=== PATIENT | male | born 1995 | race Caucasian/White ===

== ENCOUNTER 2019-12-31 14:03 | Outpatient (CLI) | payer OTHER, SELFPAY ==
--- NOTE | ~2019-12-31 | CT_ITS ---
EXAMINATION: CT abdomen pelvis w con EXAM DATE: 12/31/2019 14:59 INDICATION: Hematochezia. TECHNIQUE: Spiral CT of the abdomen and pelvis was performed following intravenous injection of 100 m L Omnipaque 350. Axial, coronal and sagittal images were reviewed. The dose-length product (DLP) fo r this examination was 704.48 mGy-cm. The exposure was tailored according to patient size (auto mA e xposure control), and iterative reconstruction (ASIR) was used as additional dose reduction technique . There is no prior study for comparison. FINDINGS: There is approximately 10 cm segment of transverse colonic wall with moderate wall thickeni ng, adjacent inflammation. There are mildly enlarged lymph nodes in the mesentery supplying this. Dif ferential diagnosis includes focal colitis, lymphoma, colon cancer. At a minimum, follow-up CT scan i ndicated. The liver, spleen, adrenal glands and pancreas are unremarkable. Gallbladder is unremarkable. No bi liary obstruction. Portal and splenic veins are patent. Kidneys enhance symmetrically. There is no hydronephrosis. The prostate is unremarkable. The bladder is unremarkable. There is no retroperi toneal or pelvic lymphadenopathy. The appendix is not positively visualized. There is no pericecal inflammatory change to suggest appe ndicitis. The stomach and small bowel are unremarkable. No free intraperitoneal gas. Mild cardi omegaly, prominent for patient's age. Left ventricular appears dilated in particular. The lung bases are unremarkable. There are no osteoblastic or osteolytic lesions identified. IMPRESSION: 1. Transverse colonic wall thickening and inflammation with associated lymphadenopathy, could be col itis or malignancy. 2. Mild cardiomegaly, left ventricular dilation. Reviewed, dictated and finalized at location A. IAN TUTOR IMPRESSION: 1. Transverse colonic wall thickening and inflammation with associated lymphad enopathy, could be colitis or malignancy. 2. Mild cardiomegaly, left ventricular dilation.
== END 2019-12-31 14:04 | disposition home or self-care (01) ==
PROVIDERS: PCP Emergency Medicine; Visit Provider Emergency Medicine
DX: R10.9 Unspecified abdominal pain (principal); K92.1 Melena; I51.7 Cardiomegaly
CPT/HCPCS: 74177; Q9967

== ENCOUNTER 2020-07-03 21:21 | Emergency (ER) | payer OTHER, SELFPAY ==
[2020-07-03] VITALS (10 sets, daily range): BP systolic 85–100; BP diastolic 50–69; PULSE 113–160; RESP 22–28; TEMP 37.2; O2SAT 100
--- NOTE | ~2020-07-03 | XR_ITS ---
EXAMINATION: XR chest 1V portable EXAM DATE: 07/03/2020 22:04 INDICATION: SVT. Recent cardiac surgery. TECHNIQUE: Portable AP frontal chest x-ray was obtained. There is no prior study for comparison. FINDINGS: Probable small to moderate left pleural effusion versus chronic left hemidiaphragm elevatio n and atelectasis. There is retrocardiac airspace disease most likely atelectasis given the volume lo ss, but nonspecific. There is cardiomegaly. There are 2 sternotomy wires. No pneumothorax. There are no osseous abnormalities identified. IMPRESSION: 1. Cardiomegaly. 2. Elevated left hemidiaphragm versus small to moderate pleural effusion. 3. Left lower lobe opacity more likely atelectasis than pneumonia. Reviewed, dictated and finalized at location A.
--- NOTE | 2020-07-03 21:38 | PC.NURSE ---
DR PETERSON AT BEDSIDE. PT ON RHEOSTAT ASSEMBLER ADENOSINE 6 MG GIVEN IVP PER DR PETERSON VRBO. PT TOLERATED WELL
--- NOTE | 2020-07-03 21:40 | ECG_ITS ---
Measurements Intervals [place] Rate: 161 P: OR: 0 QRS: 51 QRSD: 89 T: 240 QT: 278 QTc: 455 Interpretive Statements SUPRAVENTRICULAR TACHYCARDIA ST-T WAVE ABNORMALITY IN LATERAL LEADS- CONSIDER ISCHEMIA OR RATE RELATED BASELINE WANDER- I, II, III, AVL, AVF ABNORMAL ECG Electronically Signed On 07-04-2020 8:05:28 CDT by [place] Olivas D.O.
--- NOTE | 2020-07-03 21:40 | ECG_ITS ---
Measurements Intervals [place] Rate: 121 P: 59 DE: 154 QRS: 29 QRSD: 88 T: 108 QT: 316 QTc: 449 Interpretive Statements SINUS TACHYCARDIA FREQUENT ATRIAL PREMATURE COMPLEXES NONSPECIFIC T-WAVE ABNORMALITY- DIFFUSE LEADS ABNORMAL ECG Electronically Signed On 07-04-2020 8:06:22 CDT by Mt Olivas D.O.
--- NOTE | 2020-07-03 21:45 | ED.ARRPALP ---
HPI - Arrhythmia/Palpitations General Chief Complaint: Chest Pain Stated Complaint: Think im in afibb Time Seen by Provider: 07/03/20 21:32 History of Present Illness HPI narrative: Patient presents with with his girlfriend for fast heart rate. 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 He also had surgery on an aneurysm. He has had a lot of diaphoresis during this recovery.. He has chest pain which is postoperative. He does not have more chest pain with the fast heart rate. He has never had SVT before. The fast heart rate started about 2 hours prior to presentation. He does not have shortness of breath. He has some increased discomfort with deep breath. He was told he has fluid on his lungs. Related Data Allergies Allergy/AdvReac Type Severity Reaction Status Date / Time No Known Allergies Allergy Verified 07/03/20 21:37 Review of Systems Review of Systems: Narrative: CONSTITUTIONAL: Denies fever, chills, or sweats. EYES: Denies visual changes, redness, or discharge. ENT: Denies rhinorrhea, congestion, sore throat, or otalgia. CARDIOVASCULAR: He has discomfort of the chest but not pain, he has palpitations. RESPIRATORY: Denies cough or dyspnea. Has some discomfort when he takes deep breaths. GASTROINTESTINAL: Denies abdominal pain, nausea, vomiting, or diarrhea. GENITOURINARY: Denies dysuria or hematuria. SKIN: Denies rash or itching. MUSCULOSKELETAL: Denies back pain, joint pain, or myalgia. NEUROLOGIC: Denies headache, numbness, or weakness. . All systems reviewed & are unremarkable except as noted in HPI and below PMFSH Past Medical History Medical History (Updated 07/04/20 @ 00:00 by Edinson Daemon) Aortic valve commissural abnormality Surgical History Surgical History (Updated 07/03/20 @ 22:43 by Alva Kramer MD) History of aortic valve repair Exam Narrative: Exam Narrative: GENERAL: Well-appearing, well-nourished Pale looking and diaphoretic. HEAD: Normocephalic, atraumatic. EYES: PERRLA and EOMI. ENT: Nares clear, no rhinorrhea or epistaxis. Mucous membranes moist. NECK: Supple. CHEST: Clear to auscultation. No respiratory distress. Healing scar on the mid chest HEART: Regular rate and rhythm. No murmur heard. Normal peripheral pulses. ABDOMEN: Soft, nontender, nondistended, normal active bowel sounds. Healing 1 cm incision sites on the abdomen EXTREMITIES: Normal range of motion. No edema. SKIN: Warm, dry, no rash. NEURO: No focal deficits. Alert and oriented x3. PSYCH: Normal mood and affect. Const: General: no acute distress and alert Course Reevaluation(s) Reevaluation #1: Rechecked the patient and the SVT is back. Pressure was maintaining at 95. Gave him Adenosine 12 mg IV, resolution of SVT back to sinus rhythm. On the next check his blood pressure dropped to 85, and I opened his IV fluid. He still has no chest pain or shortness of breath. Told him earlier about the transfer to [place]. We will go back and check on him again before the transportation arrives. Date: 07/03/20 Time: 22:46 Consultations Consultation #1: Call the access line at [facility] and accepts to either the PCU or the ED. The access nurse will call back with the answer. She did call back with a room number and the patient was transferred directly to the room. Date: 07/03/20 Time: 22:45 Vital Signs Vital signs: Vital Signs Temperature 98.9 F 07/03/20 21:31 Pulse Rate 160 H 07/03/20 21:31 Respiratory Rate 22 H 07/03/20 21:31 Blood Pressure 100/57 L 07/03/20 21:31 Pulse Oximetry 100 07/03/20 21:31 Temperature 98.9 F 07/03/20 21:31 Pulse Rate 155 H 07/03/20 23:51 Respiratory Rate 24 H 07/03/20 23:51 Blood Pressure 93/66 L 07/03/20 23:51 Pulse Oximetry 100 07/03/20 23:51 Procedures Other Procedure Procedure 1: Other Procedure: Cardioversion. Patient is on the monitor. Consent is obtained verbally.
[2020-07-03 21:54] LABS: Basophils Percent Auto 0.2 % (0.2-1.2); Eosinophils Absolute Auto 0.1 K/mm3 (0-0.3); Eosinophils Percent Auto 0.5 % (0-4.4); Hematocrit 31.5 % (42.0-52.0); Hemoglobin 10.3 g/dL (14.0-18.0); Immature Granulocyte Absolute 0.26 K/mm3 (0.00-0.031); Immature Granulocyte Percent A 1.2 % (0-0.5); Lymphocytes Absolute Auto 2.35 K/mm3 (0.9-3.2); Lymphocytes Percent Auto 10.9 % (18.3-44.2); Mean Corpuscular HGB Conc 32.7 g/dl (32-36); Mean Corpuscular Hemoglobin 30.5 pg (26-34); Mean Corpuscular Volume 93.2 fl (80-100); Mean Platelet Volume 10.4 fl (7.4-10.4); Monocytes Percent Auto 9.2 % (2.6-8.5); Neutrophils Absolute Auto 16.8 K/mm3 (1.3-6.7); Platelet Count Result 612 k/mm3 (150-375); Red Blood Count 3.38 M/mm3 (4.6-6.20); Red Cell Distribution Width 14.6 % (11.5-14.5); White Blood Count 21.5 K/mm3 (4.5-10.0)
--- NOTE | 2020-07-03 21:54 | PC.NURSE ---
DR PETERSON AT BEDSIDE. PT HEART RATE 153. VRBO PER DR PETERSON 12 MG ADENOSINE IVP. GIVEN PER DR PETERSON. WOOD CLUB NECK WHIPPER AND EKG IN PLACE. PT TOLERATED WELL.
[2020-07-03] MEDS: ADENOSINE IV SOLN 6 MG/2 ML VIAL 12 MG (21:55)
--- NOTE | 2020-07-03 21:58 | ECG_ITS ---
Measurements Intervals [place] Rate: 111 P: 43 MA: 149 QRS: 18 QRSD: 93 T: 111 QT: 349 QTc: 476 Interpretive Statements SINUS TACHYCARDIA FREQUENT VENTRICULAR PREMATURE COMPLEXES NONSPECIFIC T-WAVE ABNORMALITY- DIFFUSE LEADS ABNORMAL ECG Electronically Signed On 07-04-2020 8:07:36 CDT by [place] Olivas D.O.
[2020-07-03] MEDS: SODIUM CHLORIDE 0.9% IV 1,000 ML 100 ML (22:03)
[2020-07-03 22:05] LABS: INR 1.2
[2020-07-03 22:06] LABS: Partial Thromboplastin Time 37.1 SECONDS (22.3-36.8)
[2020-07-03 22:07] LABS: Anion Gap 10 mmol/L (8-16); Blood Urea Nitrogen 15 mg/dL (9-20); Calcium 8.6 mg/dL (8.4-10.2); Carbon Dioxide 24 mmol/L (22-30); Chloride 99 mmol/L (98-107); Estimated CRCL calculation 109 ml/min; Estimated Glomerular Filt Rate > 60; Glucose 124 mg/dL (75-110); Potassium 4.1 mmol/L (3.4-5.0); Sodium 133 mmol/L (137-145)
[2020-07-03 22:18] LABS: NT Pro B Type Natriuretic Pept 7300 PG/ML (5-100)
[2020-07-03 22:20] LABS: Troponin I 0.049 ng/mL (0.000-0.034)
--- NOTE | 2020-07-03 23:04 | PC.NURSE ---
CALL RECEIVED FROM YAMEL AT [facility]. PT HAS BEEN ACCEPTED TO ROOM 1201A AT [facility]. CALL REPORT TO [phone]
--- NOTE | 2020-07-03 23:13 | PC.NURSE ---
REPORT CALLED TO SHANNA KOO AT [facility] AT [phone]. ALL QUESTIONS ANSWERED
--- NOTE | 2020-07-03 23:54 | PC.NURSE ---
SHANNA KOO AT [facility] CALLED - UPDATES GIVEN. NOTIFIED PT EN ROUTE
== END 2020-07-03 23:55 | disposition short-term general hospital (02) ==
PROVIDERS: Emergency Provider Emergency Medicine; PCP Emergency Medicine
DX: I47.1 Supraventricular tachycardia (principal); R79.89 Other specified abnormal findings of blood chemistry; I51.7 Cardiomegaly; R91.8 Other nonspecific abnormal finding of lung field; I49.3 Ventricular premature depolarization; I49.1 Atrial premature depolarization; R94.31 Abnormal electrocardiogram [ECG] [EKG]
CPT/HCPCS: 36415; 71045; 80048; 83880; 84484; 85025; 85610; 85730; 92960; 93005; 96360; 96361; 99285; 99291; J0153; J7030

== ENCOUNTER → 2021-11-16 10:43 | Outpatient (CLI) | payer OTHER, SELFPAY ==
--- NOTE | ~2021-11-16 | MR_ITS ---
EXAMINATION: MR brain/brain stem wo/w con DATE: 11/16/2021 11:52 INDICATION: Hyperprolactinemia. TECHNIQUE: Magnetic resonance imaging (MRI) of the brain and brainstem was performed without and with 19 mL MultiHance intravenous contrast. Whole-brain sequences included sagittal T1-weighted FSE, axia l diffusion-weighted FS EPI, axial T2*-weighted GRE, axial T2-weighted FLAIR Propeller, and axial T2- weighted Propeller. Small sjyuq-vx-vyye sequences included sagittal and coronal T1-weighted FSE cente red at the pituitary. Postcontrast sequences included small pjasj-au-fcla coronal T1-weighted FSE in a time course and sagittal T1-weighted FSE and whole-brain axial T1-weighted FSE. Apparent diffusion coefficient (ADC) maps were created. COMPARISON: None. FINDINGS: There are scattered areas of nonspecific increased T2-weighted signal intensity in the cere bral white matter, which is within normal limits for the patient's age. The pituitary is normal in si ze without a 4 mm and concave superior margin. There is no intracranial hemorrhage, acute infarction, or abnormal intracranial mass lesion. The ventricles are normal in size. There is mild mucosal thick ening in the paranasal sinuses. The orbits are normal. The mastoid air cells are normal. There is a 1 3 mm subcutaneous mass in the left superior scalp, likely benign. IMPRESSION: 1. Normal pituitary. Reviewed, dictated and finalized at location A. T FED PRINTER IMPRESSION: 1. Normal pituitary.
[2021-11-16 11:05] LABS: Estimated Glomerular Filt Rate 48
== END ==
PROVIDERS: PCP Emergency Medicine; Visit Provider Emergency Medicine
DX: E22.1 Hyperprolactinemia (principal)
CPT/HCPCS: 70553; A9577

== ENCOUNTER 2021-11-23 11:13 | Emergency (ER) | payer OTHER, SELFPAY ==
[2021-11-23 11:30] VITALS: BP 120/57; PULSE 107; RESP 16; TEMP 38.5; O2SAT 98
--- NOTE | 2021-11-23 12:13 | ED.URI ---
HPI - URI/Sore Throat General Chief Complaint: Upper Respiratory Infection Stated Complaint: long/fever/body aches Time Seen by Provider: 11/23/21 12:13 Source: patient, RN notes reviewed and old records reviewed Mode of arrival: ambulatory Limitations: no limitations History of Present Illness HPI Narrative: 26-year-old male presents to the [facility] with complaints of body aches, chills and fever that started when he woke up this morning. No treatment prior to arrival. Patient is not flu nor Covid vaccinated. Does not complain of any chest pain or abdominal pain. No nausea vomiting or diarrhea. No shortness of breath or coughing. MD elicited complaint: fever Related Data Home Medications Medication Instructions Recorded Confirmed aspirin [Baby Aspirin] 81 mg PO DAILY 11/23/21 11/23/21 eplerenone 25 mg PO DAILY 11/23/21 11/23/21 lisinopril 5 mg PO DAILY 11/23/21 11/23/21 mesalamine [Lialda] 1.2 g PO DAILY 11/23/21 11/23/21 metoprolol succinate 25 mg PO DAILY 11/23/21 11/23/21 spironolactone 25 mg PO DAILY 11/23/21 11/23/21 Allergies Allergy/AdvReac Type Severity Reaction Status Date / Time No Known Allergies Allergy Verified 11/23/21 12:23 Review of Systems Review of Systems: All systems reviewed & are unremarkable except as noted in HPI and below Constitutional: Constitutional: Reports as per HPI, Reports chills, Reports fatigue and Reports fever(s) Eyes: Eyes: Reports no additional eye complaints ENT: Reports system reviewed and no additional complaints, except as documented, Denies dizziness, Denies nasal congestion and Denies sore throat Cardiovascular: Cardiovascular: Reports no additional cardiovascular complaints, Denies chest pain, Denies rapid heart rate, Denies radiating jaw, neck or arm pain and Denies slow heart rate Respiratory: Respiratory: Reports no additional respiratory complaints, Denies chest congestion, Denies cough, Denies dyspnea and Denies wheezing Gastrointestinal: Gastrointestinal: Reports no additional gastrointestinal complaints, Denies abdominal pain, Denies diarrhea, Denies nausea and Denies vomiting Musculoskeletal: Musculoskeletal: Reports as per HPI, Denies back pain, Reports myalgias and Denies muscle cramps Integumentary/Breasts: Skin/Breast: Reports system reviewed and no additional complaints, except as docu, Denies erythema and Denies rash Neurologic: Reports system reviewed and no additional complaints, except as documented Psychiatric: Psychiatric: Reports no additional psychiatric complaints Allergic/Immunologic: Allergic/Immunologic: Reports no additional allergic/immunologic complaints [facility] Past Medical History Medical History (Updated 11/24/21 @ 00:00 by Edinson Denny) Aortic valve commissural abnormality Surgical History Surgical History History of aortic valve repair Comments At the time of my signature, I reviewed and agree with the nursing past medical, surgical, social, and family history. There is no relevant family history pertinent to the patient complaint. Exam Const: General: healthy appearing, no acute distress and alert Nutritional Appearance: well nourished Orientation/consciousness: patient oriented x3 Limitations: no limitations HENMT: Head: normal to inspection Ears: external ears normal, TM's normal bilaterally and EAC's normal Eyes: Conjunctivae: conjunctivae normal Pupils: Equal, round and reactive pupils present Neck: Neck: normal visual inspection, no lymphadenopathy and no meningeal signs Chest: Chest palpation & inspection: normal inspection of the chest Resp: Effort & Inspection: normal respiratory effort and no use of accessory muscles Auscultation: clear to auscultation bilaterally, no crackles, no rales, no rhonchi and no wheezes Cardio: Rate: regular rate Rhythm: regular rhythm Back/Spine/Pelvis: Back: no CVA tenderness Skin: General skin exam: normal color R
== END 2021-11-23 12:50 | disposition home or self-care (01) ==
PROVIDERS: Emergency Provider Nurse Practitioner; PCP Emergency Medicine
DX: B34.9 Viral infection, unspecified (principal); Z20.822 Contact with and (suspected) exposure to COVID-19; Z79.82 Long term (current) use of aspirin
CPT/HCPCS: 87804; 99213; G0463

== ENCOUNTER → 2022-02-01 10:11 | Outpatient (CLI) | payer OTHER, SELFPAY ==
--- NOTE | ~2022-02-01 | XR_ITS ---
EXAMINATION: XR toe 1st RT min 2V INDICATION: Right first toe pain TECHNIQUE: Three views of the right first toe are obtained. COMPARISON: None available FINDINGS: Bone alignment is normal. There is no fracture. No abnormal erosion or sclerosis is identif ied. The soft tissues are unremarkable. IMPRESSION: 1. No acute osseous abnormality. Reviewed, dictated and finalized at location B. RVISORY IT SPECIALIST
== END ==
PROVIDERS: PCP Emergency Medicine; Visit Provider Emergency Medicine
DX: M79.674 Pain in right toe(s) (principal)
CPT/HCPCS: 73660

== ENCOUNTER 2023-11-02 11:22 | Outpatient (CLI) | payer OTHER, SELFPAY ==
--- NOTE | ~2023-11-02 | MR_ITS ---
MRI of the left ankle Clinical history: Posterior tibial tendinitis Technique: Coronal proton-density and proton-density fat-sat images, axial proton-density and proton- density fat-sat images, and sagittal proton-density and proton-density fat-sat images were acquired. Findings: Syndesmotic ligaments are intact. Anterior and posterior talofibular ligament, and calcaneo fibular ligament are intact. Deltoid ligament is intact. There is high-grade, near-complete tearing of the very distal insertion of the tibial posterior tendo n, with severe tendinosis. Flexor hallucis longus and flexor digitorum longus tendons are intact. Per [place] tendons, anterior extensor tendons, and Achilles tendon are intact. There is no osteochondral lesion of the talar dome. There is marrow edema in the medial pole of the n avicular. Remaining bone marrow signals are unremarkable. Joint spaces are intact. There is nonspecific soft tissue edema near the medial aspect of the navicular. No fluid collection e vident. Plantar fascia intact. Impression: High-grade, probable near complete tearing of the very distal tibialis posterior tendon, as detailed above, with surrounding soft tissue edema, as well as presumed reactive marrow edema in the medial na vicular. Reviewed, dictated and finalized at location M. RAL PRODUCTION MANAGER Impression: High-grade, probable near complete tearing of the very distal tibialis posterio r tendon, as detailed above, with surrounding soft tissue edema, as well as pre sumed reactive marrow edema in the medial navicular.
== END 2023-11-02 11:23 ==
PROVIDERS: PCP Emergency Medicine
DX: M76.822 Posterior tibial tendinitis, left leg (principal)
CPT/HCPCS: 73721